=== PATIENT | male | born 1950 | race Caucasian/White ===

== ENCOUNTER 2018-01-27 08:55 | Day surgery (SDC) | payer BC ==
[~2018-01-27 08:55] MED LIST: LIDOCAINE 2% INJ 100 MG/5 ML SDV (FOR ANES.) As Ordered; PROPOFOL 200 MG/20 ML VIAL As Ordered
[2018-01-27] MEDS: NS 1,000 ML IV (09:30)
== END 2018-01-27 10:40 | disposition home or self-care (01) ==
LOC: M OPP 08:55
DX: Z12.11 Encounter for screening for malignant neoplasm of colon (principal); K57.30 Diverticulosis of large intestine without perforation or abscess without bleeding; E78.5 Hyperlipidemia, unspecified; I10 Essential (primary) hypertension; E11.9 Type 2 diabetes mellitus without complications; G47.30 Sleep apnea, unspecified; I49.9 Cardiac arrhythmia, unspecified; M12.9 Arthropathy, unspecified; Z79.82 Long term (current) use of aspirin; Z79.899 Other long term (current) drug therapy; Z88.0 Allergy status to penicillin; J30.2 Other seasonal allergic rhinitis
CPT/HCPCS: 45378

== ENCOUNTER → 2018-04-18 | Outpatient (CLI) | payer BC | LOC: M SLEEP HO 09:49 | DX: R06.83 Snoring (principal); R40.0 Somnolence; G47.30 Sleep apnea, unspecified | CPT/HCPCS: G0399 ==

== ENCOUNTER → 2023-09-21 | Outpatient (CLI) | payer MEDICARE ==
[~2023-09-21] MED LIST changes: +AMLO1TAB25 PO; +ATOR1TAB19 PO; +FLON1SPR; -LIDOCAINE 2% INJ 100 MG/5 ML SDV (FOR ANES.) As Ordered; +METF500T13 PO; +MULT1TAB10 PO; +OMEP1CAP73 PO; -PROPOFOL 200 MG/20 ML VIAL As Ordered
[2023-09-21 15:11] LABS: FOLATE 22.98 NG/ML (>5.4); THYROXINE (T4) 7.7 UG/DL (4.5-10.9)
[2023-09-21 15:12] LABS: THYROID STIMULATING HORMONE 0.796 uIU/ML (0.55-4.78)
[2023-09-21 15:16] LABS: FREE THYROXINE INDEX 3.9 % (1.4-3.8); T UPTAKE 50.4 % (22.5-37.0)
== END ==
LOC: M PLALAB 11:22
PROVIDERS: ATTEND Psychiatry & Neurology Neurology
DX: R25.1 Tremor, unspecified (principal); R26.89 Other abnormalities of gait and mobility; G62.9 Polyneuropathy, unspecified; E53.8 Deficiency of other specified B group vitamins